=== PATIENT | male | born 1990 | race Two or more races ===

== ENCOUNTER 2018-03-27 11:41 | Emergency (ER) | payer BC ==
[2018-03-27 12:26] VITALS: BP 137/80; PULSE 89; TEMP 99.7; BMI 35.9
--- NOTE | 2018-03-27 13:34 | PDOC ---
History of Present Illness - General Chief Complaint: Cold Symptoms Stated Complaint: FEVER/BACK PAIN/TONSIL STONES Time Seen by Provider: 03/27/18 12:50 - History of Present Illness Initial Comments: 28-year-old male without comorbidities presents for evaluation of sore throat fever chills and body aches 5 days. 03/27/18 13:31 Past History - Past Medical History Allergies/Adverse Reactions: Allergies Allergy/AdvReac Type Severity Reaction Status Date / Time No Known Allergies Allergy Verified 03/27/18 12:51 Home Medications: Ambulatory Orders NK [No Known Home Medication] 03/27/18 COPD: No - Suicide/Smoking/Psychosocial Hx Smoking History: Never smoked Hx Alcohol Use: No Drug/Substance Use Hx: Yes (occasional marijuana) Review of Systems - Review of Systems Constitutional: Yes: Chills, Fever, Malaise, Night Sweats HEENTM: Yes: Throat Pain All Other Systems: Reviewed and Negative *Physical Exam - Vital Signs Last Vital Signs Temp Pulse Resp BP Pulse Ox 99.7 F H 89 18 137/80 100 03/27/18 12:23 03/27/18 12:23 03/27/18 12:23 03/27/18 12:23 03/27/18 12:23 - Physical Exam Comments: HEAD: NC/AT EYES: Conjuntiva clear Ears: Canals and TM's normal NOSE: No d/c THROAT: Moist mucous membrances, oral pharanx earythemic with the grayness about the right tonsil, uvula midline NECK: Supple without adenopathy CARDIAC: S1 S2 LUNGS: CTA Full and Equal breath sounds ABDOMEN: Soft NT ND MS: Full ROM in all joints without edema NEUROLOGIC: No gross sensory or motor deficits, NVID SKIN: Normal color and temperature no lesions or rashes 03/27/18 13:32 ED Treatment Course - ADDITIONAL ORDERS Additional order review: 03/27/18 12:50 Influenza Types A,B Antigen - Preliminary Nasopharyngeal Swab - Preliminary 03/27/18 12:50 Group A Strep Rapid Antigen - Preliminary Throat Medical Decision Making - Medical Decision Making Strep and flu swab is negative. Patient has a known tonsillar stone which is long-standing. This is not changed. She is most likely a viral syndrome I will have him follow-up with his primary care physician 03/27/18 13:33 *DC/Admit/Observation/Transfer Diagnosis at time of Disposition: Viral syndrome - Discharge Dispostion Disposition: HOME Condition at time of disposition: Stable Decision to Admit order: No - Referrals Referrals: Roshni Huynh [Staff Physician] - Wayne Huynh MD [Staff Physician] - - Patient Instructions Printed Discharge Instructions: DI for Viral Syndrome Additional Instructions: Return to the emergency room should symptoms worsen or go unresolved. Please continue to take Tylenol and Motrin as needed for pain and fever. Follow-up with the primary care physician I recommended fever once 2 days for further evaluation and treatment options. - Post Discharge Activity
== END 2018-03-27 13:37 | disposition home or self-care (01) ==
LOC: JERFT 11:41
DX: B34.9 Viral infection, unspecified (principal)
CPT/HCPCS: 87070; 87430; 87804; 99281-25

== ENCOUNTER 2019-05-22 20:05 | Emergency (ER) | payer BC, OTHER ==
--- NOTE | 2019-05-22 20:12 | PDOC ---
Rapid Medical Evaluation Time Seen by Provider: 05/22/19 20:10 Medical Evaluation: Allergies Allergy/AdvReac Type Severity Reaction Status Date / Time No Known Allergies Allergy Verified 05/22/19 20:10 05/22/19 20:11 I have performed a brief in-person evaluation of this patient. The patient presents with a chief complaint of: arrested tuesday, now back pain Pertinent physical exam findings: fully ambulatory. no midline spine tenderness I have ordered the following: nothing The patient will proceed to the ED for further evaluation. Discharge Disposition - Diagnosis Back pain - Referrals - Patient Instructions - Post Discharge Activity
[2019-05-22 20:13] VITALS: BP 131/81; PULSE 84; TEMP 97.9; BMI 33.0
[2019-05-22] MEDS ORDERED: KETOROLAC TROMETHAMINE 60 MG/2 ML VIAL IM ONE (21:21)
--- NOTE | 2019-05-22 21:23 | PDOC ---
History of Present Illness - General Chief Complaint: Back Pain Stated Complaint: BACK PAIN Time Seen by Provider: 05/22/19 20:10 - History of Present Illness Initial Comments: 05/22/19 21:22 29-year-old male without comorbidities presents for evaluation of right-sided upper back pain after being arrested and getting into an altercation with the police about 2 nights ago. No radiation of symptoms. Past History - Past Medical History Allergies/Adverse Reactions: Allergies Allergy/AdvReac Type Severity Reaction Status Date / Time No Known Allergies Allergy Verified 05/22/19 20:10 Home Medications: Ambulatory Orders Cyclobenzaprine HCl [Flexeril 10 mg] 10 mg PO HS PRN #10 tablet 05/22/19 Ibuprofen [Motrin -] 600 mg PO TID #30 tablet 05/22/19 COPD: No - Psycho Social/Smoking Cessation Hx Smoking History: Former smoker Have you smoked in the past 12 months: No Information on smoking cessation initiated: No Hx Alcohol Use: No Drug/Substance Use Hx: Yes (occasional marijuana) Review of Systems - Review of Systems Musculoskeletal: Yes: Back Pain *Physical Exam - Vital Signs Last Vital Signs Temp Pulse Resp BP Pulse Ox 97.9 F 84 18 131/81 100 05/22/19 20:11 05/22/19 20:11 05/22/19 20:11 05/22/19 20:11 05/22/19 20:11 - Physical Exam Comments: 05/22/19 21:22 Full range of motion of the thoracic cervical and lumbar spine. No midline tenderness. Mild left-sided parathoracic musculature spasm and tenderness 5 out of 5 strength in bilateral upper and lower extremities without gross sensorimotor deficits neurovascular intact Medical Decision Making - Medical Decision Making 05/22/19 21:22 Toradol in the ER Flexeril and Motrin at home treat for muscle spasm follow-up with neurosurgery Discharge - Discharge Information Problems reviewed: Yes Clinical Impression/Diagnosis: Back pain Condition: Disposition: HOME - Admission No - Additional Discharge Information Prescriptions: Cyclobenzaprine HCl [Flexeril 10 mg] 10 mg PO HS PRN #10 tablet PRN Reason: Muscle Spasms Ibuprofen [Motrin -] 600 mg PO TID #30 tablet - Follow up/Referral Referrals: Jeovany Estrada MD, [facility] [Staff Physician] - - Patient Discharge Instructions Additional Instructions: He was given an injection of a long-acting anti-inflammatory in the emergency room. Do not take any Motrin at home until tomorrow evening at this time. He may start the muscle relaxer tonight at 1 tablet before bedtime and will make you sleepy. Return to the emergency room for worsening symptoms and without fail please follow-up with neurosurgery in 1 to 2 days for further evaluation and treatment options. The prescription strength Motrin is 1 tablet 3 times a day with food and discontinue the medication if it bothers her stomach - Post Discharge Activity
[2019-05-22] MEDS ORDERED: KETOROLAC TROMETHAMINE 60 MG/2 ML VIAL ONE (21:26)
== END 2019-05-22 21:32 | disposition home or self-care (01) ==
LOC: JERFT 20:05
PROC: 3E0233Z Introduction of Anti-inflammatory into Muscle, Percutaneous Approach (ICD-10-PCS; principal; 2019-05-22)
DX: M54.6 Pain in thoracic spine (principal); M62.830 Muscle spasm of back; Y35.813A Legal intervention involving manhandling, suspect injured, initial encounter; Y93.89 Activity, other specified; Y92.89 Other specified places as the place of occurrence of the external cause; Y99.8 Other external cause status; Z87.891 Personal history of nicotine dependence
CPT/HCPCS: 99282-25

== ENCOUNTER 2020-08-06 20:42 | Observation (INO) | payer SELFPAY ==
[2020-08-06] MEDS ORDERED: LACTATED RINGERS SOLUTION 1000 ML INFUS.BAG IV ONE (21:51)
[2020-08-06] MEDS ORDERED: ACETAMINOPHEN 1000 MG/100 ML VIAL (NON FORMULARY) IVPB ONE (21:51)
[2020-08-06] MEDS ORDERED: ACETAMINOPHEN INJECTION 100 ML IVPB ONE (22:13)
[2020-08-06] MEDS ORDERED: METOCLOPRAMIDE HCL INJECTION 10 MG/2 ML VIAL IVPUSH ONE (22:22)
[2020-08-06 22:47] LABS: BASO % 0.5 % (0-2.0); EOS % 1.1 % (0-4.5); HEMATOCRIT 40.8 % (35.4-49); HEMOGLOBIN 13.7 GM/dL (11.7-16.9); LYMPH % 9.6 % (8-40); MCH 30.8 pg (25.7-33.7); MCHC 33.6 g/dl (32.0-35.9); MEAN CELL VOLUME 91.9 fl (80-96); MEAN PLT VOLUME 8.5 fl (7.5-11.1); MONO % 4.9 % (3.8-10.2); NEUT % 83.9 % (42.8-82.8); PLATELET COUNT 216 K/MM3 (134-434); RBC 4.45 M/mm3 (4.00-5.60); RDW 13.1 % (11.9-15.9); WHITE BLOOD COUNT 14.8 K/mm3 (4.0-10.0)
[2020-08-06 23:12] LABS: CHLORIDE 107 mmol/L (98-107); POTASSIUM 4.4 mmol/L (3.5-5.1); SODIUM 142 mmol/L (136-145)
[2020-08-06 23:14] LABS: ALBUMIN 4.3 g/dl (3.4-5.0); ANION GAP 7 MMOL/L (8-16); BLOOD UREA NITROGEN 17.4 mg/dL (7-18); CALCIUM 8.5 mg/dL (8.5-10.1); CO2 28 mmol/L (21-32); GLUCOSE,RANDOM 120 mg/dL (74-106)
[2020-08-06 23:15] LABS: MAGNESIUM 2.2 mg/dL (1.8-2.4)
[2020-08-06 23:17] LABS: CREATININE 0.9 mg/dL (0.55-1.3); SGOT/AST 35 U/L (15-37); SGPT/ALT 50 U/L (13-61)
[2020-08-06 23:19] LABS: BILIRUBIN,TOTAL 0.5 mg/dL (0.2-1); TOT PROT 7.6 g/dl (6.4-8.2)
[2020-08-06 23:20] LABS: ALK PHOS 78 U/L (45-117)
[2020-08-06] MEDS ORDERED: METOCLOPRAMIDE HCL INJECTION 10 MG/2 ML VIAL ONE (23:38)
[2020-08-07] MEDS: LACTATED RINGERS SOLUTION 1,000 ML/1,000 ML INFUS.BAG IV SCH (02:02)
[2020-08-07] MEDS ORDERED: ONDANSETRON 4 MG/2 ML VIAL IVPUSH PRN (04:38)
[2020-08-07 07:06] LABS: INR 1.15 (0.83-1.09); PROTHROMBIN TIME (PATIENT) 13.8 SEC (9.7-13.0)
[2020-08-07 07:07] LABS: ACTIVATED PTT 28.7 SECONDS (25.2-36.5)
[2020-08-07 07:14] LABS: BASO % 0.2 % (0-2.0); EOS % 0.1 % (0-4.5); HEMATOCRIT 38.4 % (35.4-49); HEMOGLOBIN 13.4 GM/dL (11.7-16.9); LYMPH % 9.3 % (8-40); MCH 31.5 pg (25.7-33.7); MCHC 34.8 g/dl (32.0-35.9); MEAN CELL VOLUME 90.6 fl (80-96); MEAN PLT VOLUME 8.4 fl (7.5-11.1); MONO % 3.5 % (3.8-10.2); NEUT % 86.9 % (42.8-82.8); PLATELET COUNT 196 K/MM3 (134-434); RBC 4.23 M/mm3 (4.00-5.60); RDW 12.7 % (11.9-15.9); WHITE BLOOD COUNT 9.7 K/mm3 (4.0-10.0)
[2020-08-07 07:19] LABS: POTASSIUM 3.9 mmol/L (3.5-5.1)
[2020-08-07 07:22] LABS: CALCIUM 8.7 mg/dL (8.5-10.1)
[2020-08-07 07:23] LABS: BLOOD UREA NITROGEN 14.8 mg/dL (7-18); MAGNESIUM 2.2 mg/dL (1.8-2.4)
[2020-08-07 07:26] LABS: CREATININE 0.7 mg/dL (0.55-1.3); PHOSPHOROUS 3.7 mg/dL (2.5-4.9)
[2020-08-07 07:27] LABS: BILIRUBIN,TOTAL 1.2 mg/dL (0.2-1); TOT PROT 7.3 g/dl (6.4-8.2)
[2020-08-07] MEDS ORDERED: ACETAMINOPHEN 325 MG TABLET (FP) ONE (10:59)
[2020-08-07] MEDS: HEPARIN NA (PORCINE) 5,000 UNITS/ML 1ML VIAL SQ SCH ×4 (11:28→21:20)
[2020-08-07] MEDS ORDERED: MECLIZINE HCL 12.5 MG TABLET ONE (17:51)
[2020-08-07 18:33] VITALS: BMI 34.8
[2020-08-08] MEDS: MECLIZINE HCL 25 MG TABLET (FP) PO PRN ×2 (00:43→19:26)
[2020-08-08] MEDS: LACTATED RINGERS SOLUTION 1,000 ML/1,000 ML INFUS.BAG IV SCH (01:05)
[2020-08-08] MEDS: HEPARIN NA (PORCINE) 5,000 UNITS/ML 1ML VIAL SQ SCH ×3 (06:36→21:49)
[2020-08-08] MEDS: LEVOTHYROXINE NA 25 MCG TABLET (FP) PO SCH (06:53)
[2020-08-08 08:35] LABS: CHOLESTEROL 121 mg/dL (50-200)
[2020-08-08 08:36] LABS: TRIGLYCERIDES 82 mg/dL (0-150)
[2020-08-08 08:37] LABS: LDL CHOLESTEROL (ONLY SJRH) 73 mg/dL (5-100)
[2020-08-08 08:39] LABS: HDL CHOLESTEROL 37 mg/dL (40-60)
[2020-08-08 10:33] LABS: URINE APPEARANCE CLEAR; URINE BILIRUBIN NEGATIVE (NEGATIVE); URINE COLOR YELLOW; URINE GLUCOSE (UA) NEGATIVE (NEGATIVE); URINE KETONE NEGATIVE (NEGATIVE); URINE LEUK ESTERASE NEGATIVE (NEGATIVE); URINE NITRITE NEGATIVE (NEGATIVE); URINE PROTEIN TRACE (NEGATIVE)
[2020-08-08 10:46] LABS: OPIATES, URI NEGATIVE ng/ml (CUTOFF=300); PHENCYCLIDINE,URINE NEGATIVE ng/ml (CUTOFF=25); URINE BENZODIAZEPINES NEGATIVE ng/ml (CUTOFF=200)
[2020-08-08 10:54] LABS: COCAINE, UR NEGATIVE ng/ml (CUTOFF=300); METHADONE, UR NEGATIVE ng/ml (CUTOFF=300); URINE AMPHETAMINES NEGATIVE ng/ml (CUTOFF=500); URINE BARBITURATES NEGATIVE ng/ml (CUTOFF=200)
[2020-08-09] MEDS: LEVOTHYROXINE NA 25 MCG TABLET (FP) PO SCH (06:26)
[2020-08-09] MEDS: HEPARIN NA (PORCINE) 5,000 UNITS/ML 1ML VIAL SQ SCH (06:29)
[2020-08-09] MEDS: LACTATED RINGERS SOLUTION 1,000 ML/1,000 ML INFUS.BAG IV SCH (06:29)
[2020-08-09] MEDS ORDERED: levETIRAcetam 250 MG TABLET PO SCH (10:45)
[2020-08-09 11:39] VITALS: BP 148/64; PULSE 76; TEMP 97.5
== END 2020-08-09 14:19 | disposition home or self-care (01) ==
LOC: JER 20:42 → JERBED 08-07 00:04 → J4W 08-07 17:59
PROVIDERS: ADMIT Hospitalist; ATTEND Internal Medicine
PROC: 3E033NZ Introduction of Analgesics, Hypnotics, Sedatives into Peripheral Vein, Percutaneous Approach (ICD-10-PCS; principal; 2020-08-07)
PROC: 3E0337Z Introduction of Electrolytic and Water Balance Substance into Peripheral Vein, Percutaneous Approach (ICD-10-PCS; 2020-08-07)
PROC: 3E033GC Introduction of Other Therapeutic Substance into Peripheral Vein, Percutaneous Approach (ICD-10-PCS; 2020-08-07)
DX: G93.0 Cerebral cysts (principal); R55 Syncope and collapse; S09.90XA Unspecified injury of head, initial encounter; W18.39XA Other fall on same level, initial encounter; Y93.89 Activity, other specified; Y92.009 Unspecified place in unspecified non-institutional (private) residence as the place of occurrence of the external cause; E66.9 Obesity, unspecified; Z68.34 Body mass index [BMI] 34.0-34.9, adult; U07.0 Vaping-related disorder; R42 Dizziness and giddiness; M25.70 Osteophyte, unspecified joint; M54.9 Dorsalgia, unspecified; G89.29 Other chronic pain; R51.9 Headache, unspecified
CPT/HCPCS: 36415; 70450-TC; 70551-TC; 70552-TC; 71045-TC-FY; 72070-TC-FY; 72125-TC; 80053; 80061; 80307; 81003; 82550; 82553; 82962; 83605; 83721; 83735; 84100; 84439; 84443; 84484; 85025; 85610; 85730; 93005; 93010; 93306-TC; 95816; 99285-25; C9803; G0378; J0131; J1644; U0003